=== PATIENT | male | born 1955 | race Caucasian/White ===

== ENCOUNTER 2017-12-29 15:04 | Inpatient (IN) | payer OTHER ==
[~2017-12-29] VITALS: Ht 177.8 cm; Wt 106.6 kg
[2017-12-29] MEDS ORDERED: MIDAZOLAM HCL 5 MG/ML VIAL (1 ML) ONE (15:12)
[2017-12-29 15:23] VITALS: O2SAT 97
[2017-12-29 15:32] LABS: AUTOMATED NEUTROPHIL # 8.9 TH/MM3 (1.8-7.7); BASOPHIL # 0.1 TH/MM3 (0-0.2); BASOPHIL % 0.6 % (0.0-2.0); EOSINOPHIL # 0.4 TH/MM3 (0-0.4); EOSINOPHIL % 2.8 % (0.0-4.0); HEMATOCRIT 41.3 % (39.0-51.0); LYMPH % 19.1 % (9.0-44.0); LYMPHOCYTE # 2.4 TH/MM3 (1.0-4.8); MEAN CELL VOLUME 87.4 FL (80.0-100.0); MEAN CORPUSCULAR HEMOGLOBIN 31.7 PG (27.0-34.0); MEAN PLATELET VOLUME 6.6 FL (7.0-11.0); MONO % 6.9 % (0.0-8.0); MONOCYTE # 0.9 TH/MM3 (0-0.9); NEUT % 70.6 % (16.0-70.0); PLATELET COUNT 246 TH/MM3 (150-450); RED BLOOD COUNT 4.73 MIL/MM3 (4.50-5.90); WHITE BLOOD COUNT 12.6 TH/MM3 (4.0-11.0)
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
[2017-12-29 15:44] LABS: MEAN CORPUSCULAR HGB CONC 36.3 % (32.0-36.0)
[2017-12-29] MEDS ORDERED: IOHEXOL 350 MG/ML 10 ML VIAL (for RAD DIAG) IVCONTRAST ONE (15:44)
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
--- NOTE | 2017-12-29 15:44 | RADRPT ---
EXAM DATE/TIME: 12/29/2017 15:04 [facility] COMPARISON: FOREARM RIGHT (2VWS), December 29, 2017, 15:04. INDICATIONS : Post reduction right wrist fracture MEDICAL HISTORY : Unobtainable SURGICAL HISTORY : Unobtainable ENCOUNTER: Initial ACUITY: 1 day PAIN SCORE: Non-responsive. LOCATION: Right wrist FINDINGS: A single view of the right wrist demonstrates comminuted fracture of the distal radial metadiaphysis with intra-articular extension. On the prior study, there is disruption of the radial carpal articula tion. The fracture dislocation has been successfully reduced, however. Age indeterminate fracture of the ulnar styloid. CONCLUSION: 1. Comminuted fracture of the distal radial metadiaphysis with intra-articular extension. 2. Successful reduction of the radiocarpal fracture dislocation. Juan Monetnegro MD on December 29, 2017 at 15:39 Board Certified Radiologist. This report was verified electronically.
[2017-12-29] MEDS ORDERED: CHLORHEXIDINE GLUCONATE 2 % 1 PACK (2 CLOTHS) TOP PRN (15:45)
[2017-12-29] MEDS ORDERED: ACETAMINOPHEN 325 MG TAB PO PRN (15:45)
[2017-12-29] MEDS ORDERED: ONDANSETRON HCL 4 MG/2 ML VIAL IV PUSH PRN (15:45)
[2017-12-29] MEDS ORDERED: MISCELLANEOUS NURSING INFORMATION XX SCH (15:45)
[2017-12-29 15:46] VITALS: BP 141/85; PULSE 118; RESP 19
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
[2017-12-29] MEDS ORDERED: ASPI-516 CHEW (15:54)
[2017-12-29] MEDS ORDERED: GABA600T PO (15:54)
[2017-12-29] MEDS ORDERED: AMLO5TAB2 PO (15:54)
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
[2017-12-29 16:19] VITALS: BP 150/80; PULSE 119; RESP 17; O2SAT 95
[2017-12-29] MEDS ORDERED: HYDROmorphone HCL PF 2 MG/ML VIAL IV PRN (17:15)
[2017-12-29] MEDS: HYDROmorphone HCL PF 2 MG/ML VIAL IV PRN ×3 (17:33→23:48)
[2017-12-29] MEDS: LACTATED RINGER'S 1000 ML INJ 1,000 ML IV SCH ×2 (17:44→20:47)
[2017-12-29] MEDS: ACETAMINOPHEN 1000 MG/100 ML 100 ML IV SCH ×2 (17:45→23:05)
[2017-12-29 19:46] VITALS: BP 152/69; PULSE 98; RESP 16; O2SAT 98
[2017-12-29 20:00] VITALS: BP 157/93; PULSE 102; RESP 17; TEMP 97.6; O2SAT 97
[2017-12-29] MEDS ORDERED: CHLORHEXIDINE GLUCONATE 2 % 1 PACK (2 CLOTHS) TOPICAL PRN (20:30)
[2017-12-29] MEDS ORDERED: METOPROLOL TARTRATE 25 MG TAB PO PRN (20:30)
[2017-12-29] MEDS ORDERED: LACTATED RINGER'S 1000 ML IV PRN (20:30)
[2017-12-29] MEDS ORDERED: SODIUM CHLORID 0.9% 500 ML IV PRN (20:30)
[2017-12-29] MEDS ORDERED: POVIDONE IODINE 5% (ANTISEPSIS KIT) 4 APPLICATIONS EACH NARE PRN (20:30)
[2017-12-29] MEDS: DOCUSATE SODIUM 100 MG CAP PO SCH (20:47)
[2017-12-30] VITALS: BP 151/83; PULSE 82; RESP 18; TEMP 96.7; O2SAT 95
[2017-12-30] MEDS: HYDROmorphone HCL PF 2 MG/ML VIAL IV PRN (03:48)
[2017-12-30] MEDS: LACTATED RINGER'S 1000 ML INJ 1,000 ML IV SCH (03:49)
[2017-12-30 04:00] VITALS: BP 132/77; PULSE 90; RESP 18; TEMP 96.5; O2SAT 95
[2017-12-30] MEDS ORDERED: CHLORHEXIDINE GLUCONATE 2 % 1 PACK (2 CLOTHS) TOP SCH (04:00)
[2017-12-30] MEDS: ACETAMINOPHEN 1000 MG/100 ML 100 ML IV SCH ×2 (05:35→10:18)
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
[2017-12-30 07:00] LABS: BASOPHIL # 0.1 TH/MM3 (0-0.2); BASOPHIL % 0.5 % (0.0-2.0); EOSINOPHIL # 0.5 TH/MM3 (0-0.4); EOSINOPHIL % 4.6 % (0.0-4.0); HEMATOCRIT 40.4 % (39.0-51.0); HEMOGLOBIN 13.8 GM/DL (13.0-17.0); LYMPH % 18.3 % (9.0-44.0); LYMPHOCYTE # 1.9 TH/MM3 (1.0-4.8); MEAN CELL VOLUME 88.9 FL (80.0-100.0); MEAN CORPUSCULAR HEMOGLOBIN 30.3 PG (27.0-34.0); MEAN CORPUSCULAR HGB CONC 34.1 % (32.0-36.0); MEAN PLATELET VOLUME 6.7 FL (7.0-11.0); MONO % 8.3 % (0.0-8.0); MONOCYTE # 0.9 TH/MM3 (0-0.9); NEUT % 68.3 % (16.0-70.0); PLATELET COUNT 243 TH/MM3 (150-450); RED BLOOD COUNT 4.55 MIL/MM3 (4.50-5.90); RED CELL DISTRIBUTION WIDTH 14.4 % (11.6-17.2); WHITE BLOOD COUNT 10.3 TH/MM3 (4.0-11.0)
[2017-12-30 07:07] LABS: BICARBONATE 27.4 MEQ/L (21.0-32.0); CALCIUM 8.4 MG/DL (8.5-10.1); CREATININE 0.82 MG/DL (0.60-1.30)
[2017-12-30] MEDS ORDERED: ceFAZolin INJ 1,000 MG VIAL IV PUSH ONE (07:40)
[2017-12-30] MEDS ORDERED: VANCOMYCIN HCL 1000 MG VIAL ONE (07:44)
[2017-12-30] MEDS ORDERED: GENTAMICIN SULFATE 80 MG/2 ML VIAL ONE (07:45)
[2017-12-30] MEDS ORDERED: BUPIVACAINE/EPINEPHRINE 0.25% PF 10 ML VIAL ONE (08:01)
[2017-12-30] MEDS ORDERED: ACETAMINOPHEN/HYDROcodone 325 MG/10 MG TAB PO PRN (08:30)
[2017-12-30] MEDS ORDERED: MORPHINE SULFATE 4 MG/ML INJ IV PUSH PRN (08:30)
--- NOTE | 2017-12-30 08:32 | PD.OP ---
cc: Rey Bueno MD Operative Report Date of Surgery: Dec 30, 2017 Preoperative Diagnosis: Right displaced intra-articular distal radius fracture Postoperative Diagnosis: Procedure: Open reduction internal fixation right distal radius Anesthesia: Gen. Surgeon: Rey Bueno Contract Associate(s): JACOB Bravo PA-C The surgical procedure was assisted by my physician accounting assistant. My P.A. presence was necessary throughout this case for the manipulation and positioning of the surgical extremity. My P.A. was assisting me throughout the duration of this procedure. The skill set of a physician accounting assistant was medically necessary to complete this procedure. During the surgical case the surgical dental assistant was working at the back table and the physician accounting assistant was directly assisting me. Operation and Findings: Implants used: ITS Patient was seen and evaluated preoperatively and found to have a displaced intra-articular right distal radius fracture. Informed consent was obtained after detailed discussion of risk and benefits including bleeding, infection, injury to arteries, nerves, and blood vessels, weakness and numbness of hand, and tendon rupture. Informed consent was obtained. Patient received IV antibiotics prior to incision. Timeout procedure was performed. Operative extremity was prepped with alcohol followed by Hibiclens and draped usual sterile fashion. A standard volar approach to the distal radius was utilized. A 3 inch incision was made over the FCR tendon. Tendon sheath was opened. Pronator quadratus was elevated up. The fracture site was now visualized. The fracture did have intra-articular extension. Traction was applied. The articular surface was reduced. There was mild comminution of the metaphyseal region. Each Fracture fragments was manipulated to achieve excellent reduction. K wires were used to hold provisional fixation. Fluoroscopy confirmed appropriate alignment of fracture. A ITS variable angle distal radius plate was selected. Plate was provisionally fixed to bone with K wires. 2.7 and 2.4 cortical screws were used to compress plate to bone. Fluoroscopy confirmed appropriate alignment of fracture with well-placed hardware. Multiple 2.4 locking screws were now placed distally. Screws were predrilled and measured for appropriate length. 2 additional screws were placed into the shaft. K wires were removed. Final fluoroscopy revealed excellent of fracture with well-placed hardware. The wound was thoroughly irrigated with sterile saline. Subcutaneous tissue was closed with 3-0 Vicryl and skin was closed with 3-0 nylon. Sterile dressings were applied with Xeroform, 4 x 4, soft roll, and a well padded volar splint. Patient was awakened and transferred to recovery room in stable condition Rey Bueno MD Dec 30, 2017 08:32
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
[2017-12-30] MEDS ORDERED: *MEPERIDINE 25 MG INJ VIAL PERIprocedural Use ONLY ONE (08:55)
[2017-12-30] MEDS ORDERED: MIDAZOLAM HCL 2 MG/2 ML VIAL ONE (09:07)
[2017-12-30] MEDS ORDERED: *morphine SULFATE 4 MG/ML PERIprocedure ONLY ONE (09:27)
[2017-12-30 09:55] VITALS: BP 129/71; PULSE 81; RESP 18; TEMP 96.8; O2SAT 92
--- NOTE | 2017-12-30 10:17 | RADRPT ---
EXAM DATE/TIME: 12/30/2017 08:18 [facility] COMPARISON: No previous studies available for comparison. INDICATIONS : Open reduction internal fixation of the right wrist. MEDICAL HISTORY : None. SURGICAL HISTORY : None. ENCOUNTER: Subsequent ACUITY: 2 days PAIN SCORE: Non-responsive. LOCATION: Right wrist. FINDINGS: Two view examination of the right wrist demonstrates postsurgical changes following ORIF of the dista l right radius. An extra medullary plate has been placed along the ventral surface of the radius exte nding from the radiocarpal joint to the shaft. There is satisfactory alignment of the fracture fragme nts. Ulnar styloid avulsion is noted. CONCLUSION: Satisfactory appearance of the right wrist status post ORIF. Dmitry Harry MD on December 30, 2017 at 10:14 Board Certified Radiologist. This report was verified electronically.
[2017-12-30] MEDS: DOCUSATE SODIUM 100 MG CAP PO SCH (10:18)
[2017-12-30] MEDS ORDERED: MAGN30S PO (10:33)
[2017-12-30] MEDS ORDERED: DOCU1CAP39 PO (10:33)
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
[2017-12-30 12:00] VITALS: BP 141/78; PULSE 93; RESP 20; TEMP 98.4; O2SAT 94
[2017-12-30] MEDS ORDERED: PROPOFOL 200 MG/20 ML AMP IV ONE (12:00)
[2017-12-30] MEDS ORDERED: ceFAZolin INJ 1,000 MG VIAL IV ONE (12:00)
[2017-12-30] MEDS ORDERED: PHENYLEPH/NS 1000 MCG/10 ML SYR IV ONE (12:00)
[2017-12-30] MEDS ORDERED: LIDOCAINE HCL 1% PF 5 ML SYRINGE OTHER ONE (12:00)
[2017-12-30] MEDS ORDERED: GLYCOPYRROLATE 1 MG/5 ML SYRINGE IV PUSH ONE (12:00)
[2017-12-30] MEDS ORDERED: NEOSTIGMINE 5 MG/5 ML SYRINGE IV PUSH ONE (12:00)
[2017-12-30] MEDS ORDERED: ONDANSETRON HCL 4 MG/2 ML VIAL IV PUSH ONE (12:00)
[2017-12-30] MEDS ORDERED: ROCURONIUM INJ 50 MG/5 ML SYRINGE IV PUSH ONE (12:00)
[2017-12-30] MEDS ORDERED: DO NOT ADM ANY ANTICOAGULANT DRUGS PRN (12:00)
[2017-12-30] MEDS ORDERED: DEXAMETHASONE SOD PHOS 4 MG/ML VIAL IV ONE (12:00)
[2017-12-30] MEDS ORDERED: FAMOTIDINE 20 MG TAB PO SCH (21:00)
[2017-12-30] MEDS ORDERED: MAGNESIUM HYDROXIDE SUSP 30 ML CUP PO SCH (21:00)
--- NOTE | 2017-12-31 00:02 | EKG ---
Date Performed: 12/29/2017 Time Performed: 22:25:38 PTAGE: 89 years EKG: Sinus rhythm NORMAL ECG INTERPRETATION BASED ON A DEFAULT AGE OF 40 YEARS NO PREVIOUS TRACING DOCTOR: Gene Dye Interpretating Date/Time 12/31/2017 00:01:00
== END 2017-12-30 12:20 | disposition home or self-care (01) | DRG 511 ==
LOC: NEPI 15:04 → NEDA 18:11 → EDBD 18:11 → N06B 20:12
PROVIDERS: ADMIT Surgery Trauma Surgery; ATTEND Surgery Trauma Surgery
PROC: 0PSHXZZ Reposition Right Radius, External Approach (ICD-10-PCS; 2017-12-29)
PROC: 0PSH04Z Reposition Right Radius with Internal Fixation Device, Open Approach (ICD-10-PCS; principal; 2017-12-30 07:20)
DX: S52.571A Other intraarticular fracture of lower end of right radius, initial encounter for closed fracture (principal); S32.019A Unspecified fracture of first lumbar vertebra, initial encounter for closed fracture; S32.029A Unspecified fracture of second lumbar vertebra, initial encounter for closed fracture; R00.0 Tachycardia, unspecified; I10 Essential (primary) hypertension; V29.9XXA Motorcycle rider (driver) (passenger) injured in unspecified traffic accident, initial encounter; R40.2410 Glasgow coma scale score 13-15, unspecified time
CPT/HCPCS: 25605; 70450; 71045; 71260; 72125; 72170; 73090; 73100; 74177; 76000; 80048; 80307; 85025; 85384; 85610; 85730; 86850; 86900; 86901; 93005; 94150; 99291; C1713; G0390; J0131; J0690; J1100; J1170; J1580; J2175; J2250; J2270; J2370; J2405; J2710; J3010; J3370; J7120; Q9967